=== PATIENT | female | born 1960 | race Asian ===

== ENCOUNTER 2018-10-28 14:24 | Outpatient (CLI) | payer BC ==
--- NOTE | 2018-10-28 16:39 | BD ---
BONE DENSITOMETRY USING DEXA: Date: 10/28/18 HISTORY: Postmenopausal screening for osteoporosis. FINDINGS: Lumbar Spine: BMD (g/cm2) L1 0.765 T-Score: -2.0 Z-Score: -0.9 L2 0.853 T-Score: -1.6 Z-Score: -0.4 L3 0.892 T-Score: -1.7 Z-Score: -0.4 L4 0.966 T-Score: -0.9 Z-Score: 0.5 L1-L4 0.875 T-Score: -1.6 Z-Score: -0.3 Femoral Neck: 0.707 T-Score: -1.3 Z-Score: -0.1 Total Femur: 0.795 T-Score: -1.2 Z-Score: -0.4 There has been interval reduction of 0.4% in the bone mineral density of the lumbar spine and improve ment of 3.4% in the bone mineral density of the proximal femur since 06/12/16. IMPRESSION: Osteopenia. POS: OFF
--- NOTE | 2018-11-16 10:52 | MMO ---
Bilateral MAMMO Bilat Screen [facility]. CLINICAL HISTORY: Patient is 57 years old and is seen for screening. The patient has no family history of breast cancer. The patient has no personal history of cancer. VIEWS: The views performed were: bilateral craniocaudal with tomosynthesis and bilateral mediolateral oblique with tomosynthesis. FILMS COMPARED: The present examination has been compared to prior imaging studies performed at [facility] on 12/28/2015 and 01/28/2016. MAMMOGRAM FINDINGS: The breasts are heterogeneously dense, which could obscure a lesion on mammography. There are no suspicious masses, suspicious calcifications, or new areas of architectural distortion. IMPRESSION: THERE IS NO MAMMOGRAPHIC EVIDENCE OF MALIGNANCY. A ROUTINE FOLLOW-UP MAMMOGRAM IN 1 YEAR IS RECOMMENDED. THE RESULTS OF THIS EXAM WERE SENT TO THE PATIENT. ACR BI-RADS Category 1 - Negative MAMMOGRAPHY NOTE: 1. A negative mammogram report should not delay a biopsy if a dominant of clinically suspicious mass is present. 2. Approximately 10% to 15% of breast cancers are not detected by mammography. 3. Adenosis and dense breasts may obscure an underlying neoplasm.
== END 2018-10-28 14:25 | disposition home or self-care (01) ==
LOC: BICMAMMO 14:24
PROVIDERS: ATTEND Obstetrics & Gynecology
DX: Z12.31 Encounter for screening mammogram for malignant neoplasm of breast (principal); M81.0 Age-related osteoporosis without current pathological fracture; M85.89 Other specified disorders of bone density and structure, multiple sites; Z79.890 Hormone replacement therapy
CPT/HCPCS: 77063; 77067; 77080

== ENCOUNTER 2020-10-22 13:13 | Outpatient (CLI) | payer BC | END 2020-10-22 13:14 | disposition home or self-care (01) | LOC: BICMAMMO 13:13 | PROVIDERS: ATTEND Internal Medicine | DX: Z12.31 Encounter for screening mammogram for malignant neoplasm of breast (principal) | CPT/HCPCS: 77063; 77067 ==

== ENCOUNTER 2021-12-04 13:26 | Outpatient (CLI) | payer BC | END 2021-12-04 13:27 | disposition home or self-care (01) | LOC: BICMAMMO 13:26 | PROVIDERS: ATTEND Internal Medicine | DX: Z12.31 Encounter for screening mammogram for malignant neoplasm of breast (principal); R92.1 Mammographic calcification found on diagnostic imaging of breast | CPT/HCPCS: 77063; 77067 ==

== ENCOUNTER 2023-07-22 12:22 | Emergency (ER) | payer BC ==
[2023-07-22] MEDS ORDERED: traMADol HCl 50 MG TAB ONE (15:13)
== END 2023-07-22 15:43 | disposition home or self-care (01) ==
LOC: ERS 12:22
DX: S52.572A Other intraarticular fracture of lower end of left radius, initial encounter for closed fracture (principal); S52.612A Displaced fracture of left ulna styloid process, initial encounter for closed fracture; W11.XXXA Fall on and from ladder, initial encounter
CPT/HCPCS: 29125

== ENCOUNTER 2023-07-31 08:06 | Day surgery (SDC) | payer BC ==
[2023-07-30 10:26] VITALS: BMI 23.1
[2023-07-31] MEDS ORDERED: fentaNYL 50 mcg/mL 1 mL Vial ONE (09:18)
[2023-07-31] MEDS ORDERED: Bupivacaine PF 0.5% 30 ML VIAL ONE (09:19)
[2023-07-31] MEDS ORDERED: Midazolam HCl 2 mg/2 ml Vial ONE (09:19)
[2023-07-31] MEDS ORDERED: fentaNYL PF 100 MCG/2 ML SYRINGE ONE (11:50)
[2023-07-31] MEDS ORDERED: PROPOFOL 20 ML ONE (11:50)
[2023-07-31] MEDS ORDERED: CEFAZOLIN 2 GM VIAL ONE (11:51)
[2023-07-31] MEDS ORDERED: Sodium Chloride 0.9% 100 ML ONE (11:51)
[2023-07-31] MEDS ORDERED: Lidocaine 1% PF 5 ML VIAL ONE (11:55)
[2023-07-31] MEDS ORDERED: Ketorolac Tromethamine 30 MG (1 mL) VIAL ONE (12:13)
[2023-07-31] MEDS ORDERED: Dexamethasone 20 MG/5 ML VIAL ONE (12:13)
[2023-07-31] MEDS ORDERED: Ondansetron PF 4 MG/2 ML Vial ONE ×2 (12:38→14:10)
== END 2023-07-31 15:20 | disposition home or self-care (01) ==
LOC: SDC 08:06
PROVIDERS: ATTEND Orthopaedic Surgery
PROC: 0PSJ04Z Reposition Left Radius with Internal Fixation Device, Open Approach (ICD-10-PCS; principal; 2023-07-31)
DX: S52.532A Colles' fracture of left radius, initial encounter for closed fracture (principal); W11.XXXA Fall on and from ladder, initial encounter
CPT/HCPCS: C1713; J0665; J1100; J1885; J2250; J2405; J2704; J3010; J3490